=== PATIENT | female | born 1995 | race Two or more races ===

== ENCOUNTER 2019-06-17 09:47 | Emergency (ER) | payer OTHER ==
[~2019-06-17] VITALS: Ht 162.6 cm; Wt 66.2 kg
--- NOTE | 2019-06-17 09:50 | NUR ---
, from work, c/o lower back sharp pain x 2 weeks, got worst last night. Patient aox4, breathing even and unlabroed, no sob noted, attached to the lunchroom monitor. kept comfortable.
--- NOTE | 2019-06-17 09:58 | NUR ---
urine collected and sent to lab
[2019-06-17 10:24] LABS: APPEARANCE,URINE Clear (CLEAR); BILIRUBIN,URINE Negative (NEGATIVE); BLOOD, URINE Small Ery/uL (NEGATIVE); COLOR,URINE Yellow (YELLOW); KETONES,URINE Negative (NEGATIVE); LEUKOCYTE ESTERASE ,URINE Negative (NEGATIVE); NITRITE, URINE Negative (NEGATIVE); PROTEIN,URINE Negative (NEGATIVE); UGLUCOSE Negative (NEGATIVE); UROBILINOGEN,URINE 0.2 EU/dL (0.2)
[2019-06-17 10:25] LABS: BACTERIA,URINE Few /HPF (None Seen); SQUAMOUS EPITHELIAL CELL,UR Few /HPF (None Seen); WBC,URINE 0-2 /HPF (0-3)
[2019-06-17] MEDS ORDERED: HYDROCODONE/APAP 5/325MG 1 EACH TABLET PO ONE (10:30)
[2019-06-17] MEDS ORDERED: IBUPROFEN 400 MG TABLET PO ONE (10:30)
[2019-06-17] MEDS ORDERED: IBUPROFEN 400 MG TABLET ONE (10:40)
[2019-06-17] MEDS ORDERED: HYDROCODONE/APAP 5/325MG 1 EACH TABLET ONE (10:40)
--- NOTE | 2019-06-17 13:11 | NUR ---
Patient discharged to home in stable condition. Written and verbal after care instructions given. Patient verbalizes understanding of instruction.
[2019-06-17 13:12] VITALS: BP 134/90
== END 2019-06-17 13:12 | disposition home or self-care (01) ==
LOC: ER 09:49
DX: M54.5 Low back pain (principal); E03.9 Hypothyroidism, unspecified
CPT/HCPCS: 81000-TC; 84703-TC